=== PATIENT | female | born 1960 | race Caucasian/White ===

== ENCOUNTER 2017-11-14 08:26 | Inpatient (IN) | payer OTHER ==
[~2017-11-14] VITALS: Ht 139.7 cm; Wt 80.7 kg
[~2017-11-14 08:26] MED LIST: CIPROFLOXACIN500 M1 PO; IBUPROFEN 600600 M1 PO; NAPROSYN500 MG PO; NORCO 5-325 TA1 EACH PO; PENICILLIN VK500 MG PO; SYNTHROID; TRAMADOL 50 MG50 MG PO; ULTRAM 50MG TAB50 MG PO
[2017-11-14 08:29] VITALS: BP 118/69
[2017-11-14] MEDS ORDERED: SYNTHROID75 MCG PO (08:35)
[2017-11-14 09:01] LABS: ABSOLUTE BASOPHILS 0.1 thou/uL (0.0-0.2); ABSOLUTE EOSINOPHILS 0.1 thou/uL (0.0-0.7); ABSOLUTE LYMPHOCYTES 1.8 thou/uL (0.8-5.3); ABSOLUTE MONOCYTES 0.6 thou/uL (0.0-1.2); ABSOLUTE NEUTROPHILS 5.9 thou/uL (1.6-8.1); ANION GAP 11 mmol/L (7-16); BASOPHILS 0.9 %; BUN 26 mg/dL (7-18); CALCIUM 9.9 mg/dL (8.5-10.1); CHLORIDE 105 mmol/L (98-107); CO2 24 mmol/L (21-32); CREATININE 0.8 mg/dL (0.6-1.3); EOSINOPHILS 0.9 %; GLUCOSE 102 mg/dL (70-99); HEMATOCRIT 43.3 % (37.0-47.0); HEMOGLOBIN 14.6 gm/dL (12.0-15.0); LYMPHOCYTES 21.7 %; MCH 33.7 pg (26.0-34.0); MCHC 33.8 g/dL (28.0-37.0); MCV 99.8 fL (80.0-100.0); NUCLEATED RBCS 0 /100WBC; PLATELET COUNT* 214 thou/uL (150-400); POLYS 69.5 %; POTASSIUM 4.2 mmol/L (3.5-5.1); RBC 4.34 mil/uL (4.20-5.00); RDW-CV 12.3 % (10.5-14.5); SODIUM 140 mmol/L (136-145); WBC 8.4 thou/uL (4.0-11.0)
[2017-11-14 09:02] LABS: PROTIME 9.5 Seconds (9.20-11.50)
[2017-11-14 09:13] LABS: ALKALINE PHOSPHATASE 95 U/L (46-116); LIPASE 191 U/L (73-393); NT-PRO BRAIN NAT PEPTIDE 47 pg/mL (<300); SGOT 49 U/L (15-37); SGPT 60 U/L (30-65); TOTAL BILIRUBIN 0.1 mg/dL (<0.1-1.0); TOTAL PROTEIN 8.2 g/dL (6.4-8.2); TROPONIN-I LEVEL <0.06 ng/mL (<0.06)
[2017-11-14 12:25] VITALS: BP 113/66
[2017-11-14 13:20] VITALS: BP 120/46
--- NOTE | 2017-11-14 15:53 | EKG ---
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 Member: Murali TREVINO : 1960 Requested By: Bharat Hernandez Order Number: [id number] MD: Rom Meier Measurements Intervals [place] Rate: 80 P: 62 MS: 141 QRS: -44 QRSD: 85 T: 49 QT: 442 QTc: 510 Interpretive Statements Sinus rhythm left axis Abnormal R-wave progression, early transition consider Inferior infarct, old Compared to ECG 03/22/2011 19:07:12 no change Electronically Signed On 11-14-2017 15:53:04 CDT by Rom Meier [email or web address] <ELECTRONICALLY SIGNED> By: Rom Meier MD, [facility] 11/14/17 1553 0832 0832 Rom Meier MD, [facility] /EPI
[2017-11-14 16:00] VITALS: BP 91/45
[2017-11-14 17:30] VITALS: BP 106/50
[2017-11-14 20:00] VITALS: BP 105/58
[2017-11-15] VITALS: BP 97/48
[2017-11-15 04:00] VITALS: BP 90/48
[2017-11-15 08:00] VITALS: BP 116/37
[2017-11-15 11:00] VITALS: BP 109/67
[2017-11-15 15:00] VITALS: BP 107/71
--- NOTE | 2017-11-15 15:58 | 2DMMODE ---
[place] [address] 2 D/M-MODE ECHOCARDIOGRAM Name: ZACKARY LACY Room: [address] IN .R.#: [id number] Admission: 11/14/17 Attend Phys: Ade Avery Discharge: Date of : 62 Date of Service: 11/15/17 1558 Report #: [id number] THIS REPORT FOR: //name// APPROVED REPORT Study performed: 11/15/2017 13:46:13 EXAM: Comprehensive 2D, Doppler, and color-flow Echocardiogram Patient Location: Bedside BSA: 1.67 HR: 69 bpm BP: 109/67 mmHg Other Information Study Quality: Technically Difficult Technically limited study due to uncooperative patient. Indications Pulmonary Embolism Chest Pain 2D Dimensions LVEF(%): 72.38 (>50%) IVSd: 10.29 (7-11mm) LVOT Diam: 17.86 (18-24mm) LVDd: 43.27 mm PWd: 9.62 (7-11mm) Ascending Ao: 31.83 (22-36mm) LVDs: 25.43 (25-40mm) Aortic Root: 27.90 mm Christianson's LVEF: 72.38 % Mitral Valve E/A Ratio: 0.78 MV Decel. Time: 263.14 ms MV E Max David.: 0.65 m/s MV PHT: 76.31 ms MVA (PHT): 2.88 cm2 TDI E/Lateral E': 5.42 E/Medial E': 7.22 Medial E' David.: 0.09 m/s Lateral E' David.: 0.12 m/[place] [address] 2 D/M-MODE ECHOCARDIOGRAM Name: ZACKARY LACY Room: [address] IN [facility].#: [id number] Admission: 11/14/17 Attend Phys: Ade Avery Discharge: Date of : 62 Date of Service: 11/15/17 1558 Report #: [id number] PV Peak David.: 0.97 m/s PV Peak Gr.: 3.76 mmHg Tricuspid Valve RAP Estimate: 5.00 mmHg TR Peak Gr.: 21.34 mmHg RVSP: 26.34 mmHg PA Pressure: 26.34 mmHg Left Ventricle The left ventricle is normal size. There is normal LV segmental wall motion. There is normal left ventricular wall thickness. Left ventricular systolic function is normal. LVEF is 60-65%. Grade I - abnormal relaxation pattern. Right Ventricle The right ventricle is normal size. The right ventricular systolic function is normal. Atria The left atrium size is normal. The right atrium size is normal. Aortic Valve Aortic valve is not well visualized. Mitral Valve The mitral valve is normal in structure. Trace to mild mitral regurgitation. No evidence of mitral valve stenosis. Tricuspid Valve The tricuspid valve is normal in structure. Trace tricuspid regurgitation. The RVSP is 26 mmHg. Pulmonic Valve The pulmonary valve is normal in structure. There is no pulmonic valvular regurgitation. Great Vessels The aortic root is normal in size. IVC is not visualized. Pericardium There is no pericardial effusion. <Conclusion> The left ventricle is normal size. There is normal left [place] [address] 2 D/M-MODE ECHOCARDIOGRAM Name: ZACKARY LACY Room: [address] IN .R.#: [id number] Admission: 11/14/17 Attend Phys: Ade Avery Discharge: Date of : 62 Date of Service: 11/15/171557 Report #: [id number] Left ventricular systolic function is normal. LVEF is 60-65%. Grade I - abnormal relaxation pattern. Trace to mild mitral regurgitation. Trace tricuspid regurgitation. The RVSP is 26 mmHg. <ELECTRONICALLY SIGNED> By: Wyatt Guillaume MD, [facility] 11/15/17 1558 57 1558 Wyatt Guillaume MD, FACC /INF
[2017-11-15 20:00] VITALS: BP 97/48
[2017-11-16] VITALS: BP 100/40
[2017-11-16 04:00] VITALS: BP 104/39
[2017-11-16 04:39] LABS: INR 1.5; PROTIME 14.1 Seconds (9.20-11.50)
[2017-11-16 11:49] VITALS: BP 102/57
[2017-11-16 16:13] VITALS: BP 98/63
--- NOTE | 2017-11-16 16:19 | EKG ---
[place] [address] ELECTROCARDIOGRAM REPORT Name: ZACKARY LACY Room: [address] ADM IN M.R.#: [id number] Admission: 11/14/17 Attend Phys: Shante Mlaone Discharge: Date of : 62 Report #: [id number] THIS REPORT FOR: //name// [facility] Test Date: 2017-11-16 Test Time: 13:13:34 Pat Name: ZACKARY LACY Department: Room: [address] Gender: F A P Mechanic: : 1960 Requested By: Esteban Nguyen Order Number: [id number] MD: Rom Meier Measurements Intervals [place] Rate: 69 P: 41 ID: [id number] QRS: -45 QRSD: 83 T: 11 QT: 477 QTc: 511 Interpretive Statements Sinus rhythm Left ventricular hypertrophy left anterior fasicular block Prolonged QT interval Compared to ECG 11/14/2017 08:32:06 no change Electronically Signed On 11-16-2017 16:18:45 CDT by Rom Meier [email or web address] <ELECTRONICALLY SIGNED> By: Rom Meier MD, [facility] 11/16/17 1618 1313 1313 Rom Meier MD, [facility] /EPI
[2017-11-16 20:00] VITALS: BP 114/47
[2017-11-17 00:36] VITALS: BP 98/49
[2017-11-17 04:00] VITALS: BP 97/59
[2017-11-17 05:11] LABS: HEMOGLOBIN 12.9 gm/dL (12.0-15.0); MCHC 33.2 g/dL (28.0-37.0); MCV 99.3 fL (80.0-100.0); MPV 9.8 fl. (7.2-11.1); RBC 3.93 mil/uL (4.20-5.00); RDW-CV 12.3 % (10.5-14.5); WBC 3.5 thou/uL (4.0-11.0)
[2017-11-17 05:14] LABS: PROTIME 25.8 Seconds (9.20-11.50)
[2017-11-17 05:34] LABS: INR 2.7
[2017-11-17 05:51] LABS: CALCIUM 9.3 mg/dL (8.5-10.1); CREATININE 0.7 mg/dL (0.6-1.3); MAGNESIUM 2.1 mg/dL (1.8-2.4); POTASSIUM 4.3 mmol/L (3.5-5.1)
--- NOTE | 2017-11-17 07:16 | CON ---
[address] [address] CONSULTATION Name: ZACKARY LACY Room: [address] IN M.R.#: [id number] Admission: 11/14/17 Attend Phys: Shante Malone Discharge: Date of : 62 Report #: [id number] THIS REPORT FOR: //name// CC: BARBARA physician/PCP Ade Avery DATE OF SERVICE: 11/16/2017 REQUESTING PHYSICIAN: Dr. Esteban Nguyen. REASON FOR CONSULTATION: Chest pain, PE. DISCUSSION: The patient is a 56-year-old woman who presented to the Emergency Department several days ago with complaints of increasing chest pain and shortness of breath. She notes she has had anterior chest pain "for a long time." She has been on various medications in the past including nonsteroidals and anti-inflammatories without any relief. The chest pain is worse when she presses on it or coughs. Recently, she developed some discomfort in her mid upper back area as well. This was then making it harder to breathe. She does smoke cigarettes, but was less than a pack of cigarettes per day. Because of the shortness of breath, was seen in the Emergency Department here 2 days ago. A chest film was unremarkable. She had a CT scan done to rule out dissection and that PE were found on the right side. She was started on Lovenox. Decision was also made to use warfarin and that has been started with Lovenox to continue to bridge. She has continued to have complaints of chest pain. We are asked to see her today. She is on room air. Pain is much worse when she does cough or moves around. Again, she notes she has had some of this for "a long time." She notes the pain medication she has been receiving here in the hospital has not helped. She has no prior history of thromboembolic disease. No family history that she is aware of. She has not been immobile. No other identifiable risk factors. She has not worked for the last couple of years. 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 PAST MEDICAL HISTORY: Remarkable for hypothyroidism. She notes she has been taking her medications. She has also had a prior hysterectomy. She gets her care through [facility]. SOCIAL HISTORY: She is a smoker, less than a pack of cigarettes per day. FAMILY HISTORY: Negative for thromboembolic disease. Also, positive for COPD. No cancers. REVIEW OF SYSTEMS: A 12-point ROS was done. Note positives [place] [address] CONSULTATION Name: ZACKARY LACY Room: [address] IN [facility]#: [id number] Admission: 11/14/17 Attend Phys: Shante Malone Discharge: Date of : 62 Report #: [id number] note the nebulizer treatments given to her here in the hospital has helped her breathe better, but they did increase her cough, which made the pain worse. So, she has stopped those. Denies any difficulty swallowing. Not any nausea or vomiting. Overall, the shortness of breath is somewhat better, though she continued to have severe pain. Frustrated that none of the narcotics given her here in the hospital have helped. No syncopal episodes. No palpitations. No problems with swelling in the lower extremities. PHYSICAL EXAMINATION: GENERAL APPEARANCE: This is a woman who looks stated age, if not older. Lying in bed, resting comfortably. No respiratory distress. VITAL SIGNS: She is keeping her hands over her anterior chest, noting it is uncomfortable. HEENT: Head is normocephalic. Sclerae nonicteric. Dentition is fair. NECK: Negative for definite adenopathy, no JVD is noted. HEART: Regular rate. No S3 is heard. LUNGS: Sounds are clear. No wheezing or crackles are heard. Excursion is equal. No crepitus is palpated over her chest wall. She is quite uncomfortable with palpation over the anterior costochondral areas. Also, complains of discomfort with palpation just to the lateral aspect of her thoracic spine throughout the entire chest. No CVA tenderness. ABDOMEN: Soft, without appreciable hepatosplenomegaly. EXTREMITIES: She has no clubbing. Lower extremities are negative for any significant edema. No calf tenderness, no cords. LABORATORY AND X-RAY FINDINGS: CT scan was reviewed. She had a dissection study done and no dissection was noted. She does have two small filling defects in the right lower lobe. No clots noted in the larger pulmonary arteries. No masses seen. LABORATORY DATA: BUN is 26, creatinine 0.8, potassium is 4.2. TSH was 15.5. INR today is 1.5. D-dimer was only 0.41. Note, her protein C, protein S activity are normal. Additional hypercoagulable workup was also unremarkable. White blood cell count 8400, hemoglobin 14.6, hematocrit of 43.3, platelets are normal. IMPRESSION: 1. Non-massive pulmonary embolism. No clots found in her legs. Does not appear to have any identifiable risk factors or ongoing risks. Has been started on Lovenox and bridging towards the use of warfarin. 2. Chest wall pain. She notes much of this has actually been longstanding. Appears to have a component of costochondritis. Now with the development of pain in her back, it is possible she may have fibromyalgia. 3. Tobacco abuse. 4. Hypothyroidism. Reportedly, has been compliant with her regimen, though [place] [address] CONSULTATION Name: ZACKARY LACY Room: [address] IN M.R.#: [id number] Admission: 11/14/17 Attend Phys: Shante Malone Discharge: Date of : 62 Report #: [id number] RECOMMENDATIONS: 1. Several doses of IV Solu-Medrol may help with some of her chest wall pain. 2. Will need 6 months' worth of therapy with anticoagulation. 3. Work at controlling pain. Nonsteroidals or rather nonnarcotic medications may be helpful. May need additional evaluation such as rheumatoid factor, etc. in the future. <ELECTRONICALLY SIGNED> By: Cheri Stephens MD 11/17/17 0716 1322 0043Cheri Stephens MD /nt
[2017-11-17 08:45] VITALS: BP 126/60
[2017-11-17 12:35] VITALS: BP 97/41
[2017-11-17 16:26] VITALS: BP 94/41
[2017-11-17 20:00] VITALS: BP 105/53
[2017-11-18] VITALS: BP 79/55
[2017-11-18 04:00] VITALS: BP 83/38
[2017-11-18 05:09] LABS: INR 2.6; PROTIME 25.4 Seconds (9.20-11.50)
[2017-11-18 05:12] LABS: CALCIUM 8.9 mg/dL (8.5-10.1); CREATININE 0.7 mg/dL (0.6-1.3); POTASSIUM 3.6 mmol/L (3.5-5.1)
[2017-11-18 08:00] VITALS: BP 124/67
[2017-11-18] MEDS ORDERED: SYNTHROID150 MCG PO (10:47)
[2017-11-18] MEDS ORDERED: COUMADIN 3 MG TA3 M1 PO (10:48)
[2017-11-18] MEDS ORDERED: OXYCODONE HCL15 MG PO (10:50)
[2017-11-18] MEDS ORDERED: XANAX 0.5 MG0.5 MG PO (10:52)
[2017-11-18] MEDS ORDERED: HYDROCODON-ACE1 EAC7 PO (10:57)
[2017-11-18] MEDS ORDERED: AUGMENTIN 875-1 EACH PO (11:02)
[2017-11-18 11:27] VITALS: BP 124/67
--- NOTE | 2017-11-21 14:13 | CON ---
[address] [address] CONSULTATION Name: ZACKARY LACY Room: [address] IN M.R.#: [id number] Admission: 11/14/17 Attend Phys: Shante Malone Discharge: 11/18/17 Date of : 62 Report #: [id number] THIS REPORT FOR: //name// CC: BARBARA physician/PCP Ade Avery DATE OF SERVICE: 11/16/2017 TYPE OF REPORT: Cardiology consultation. HISTORY OF PRESENT ILLNESS: The patient is a 56-year-old single white female who I was asked to see in the hospital today after she complained of chest pain. The patient states that she has had chest pain for years. She actually notes that the skin on the front of her chest is tender to touch. She was actually admitted overnight in [place], [place] with chest pain and told that she had fibromyalgia. She has never been to [place] before. However, she was brought to the Emergency Room 2 nights ago when she felt a pain in her chest that radiated into her back. It is worse if she took a deep breath or coughed. There is no associated nausea or diaphoresis. She had had no bleeding or fever. She does have a chronic cough. She denied any swelling of her leg or leg pain. She had a CT scan that showed a pulmonary embolus. Cardiology consultation was requested. She notes occasional flutter in her chest and lightheadedness but she has had no syncope. PAST MEDICAL HISTORY: Significant for cholecystectomy, appendectomy, tonsillectomy, hysterectomy, clavicular fracture, removal of a lipoma, hypothyroidism. She has no history of hypertension, diabetes or hyperlipidemia. MEDICATIONS: Her only medication includes Synthroid that she gets some [place]. ALLERGIES: She has no known drug allergies. FAMILY HISTORY: Negative for heart disease. SOCIAL HISTORY: She is single, lives in [place], [place]. She is not working at this time. She does not have insurance. She smokes half pack of cigarettes a day. Rarely drinks alcohol. Denies illicit drug use. REVIEW OF SYSTEMS: She has no history of stroke. She does have chronic cough. No history of liver disease, kidney disease, cancer, psychiatric illness or chronic skin condition. PHYSICAL EXAMINATION: GENERAL: Revealed a middle-aged female lying in bed. She appeared in no acute distress. VITAL SIGNS: She had a blood pressure of 100/60, pulse 60 and [place] [address] CONSULTATION Name: ZACKARY LACY Room: [address]#: [id number] Admission: 11/14/17 Attend Phys: Shante Malone Discharge: 11/18/17 Date of : 62 Report #: [id number] HEENT: She was anicteric. Conjunctivae pink. Mucous membranes moist. NECK: Veins nondistended. No carotid bruits. Neck supple. CHEST: Clear to auscultation. CARDIOVASCULAR: Regular rate and rhythm. No murmur. ABDOMEN: Soft and nontender. EXTREMITIES: Had no edema. Dorsalis pedis pulse 2+ bilaterally. SKIN: Warm and dry. NEUROLOGICAL: Nonfocal. LYMPHATIC: No adenopathy. MUSCULOSKELETAL: No joint effusion. PSYCHIATRIC: Mood is appropriate. RADIOLOGICAL DATA: Her ECG on admission showed a sinus rhythm on the monitor; however, there does not appear to be a 12-lead ECG in her chart. Her workup so far, she actually had an echocardiogram performed yesterday that showed normal ventricular function. No pericardial effusion. She had x-rays that included a portable chest x-ray that showed tortuous aorta and clear lung win. CT scan of the chest using a PE protocol that showed right lower lobe mild pulmonary embolus. No aortic dissection. Venous duplex scan of her legs showed no DVT. LABORATORY DATA: She actually had lab work that included sodium 140 and creatinine 0.8. Liver function studies were normal. Troponin 0.06. TSH is 15, T4 0.2, which is low and free T3 is 0.4, which is low. White blood cell count is 8.4 and hemoglobin 14.6. IMPRESSION AND RECOMMENDATIONS: 1. Pulmonary embolus. The patient is being anticoagulated. 2. Chest pain. Suspect noncardiac. Recommend no further cardiac evaluation. 3. Hypothyroidism. 4. Tobacco abuse. 5. Chronic bronchitis. <ELECTRONICALLY SIGNED> By: Rom Meier MD, [facility] 11/21/17 1413 1405 2230Dadiego Meier MD, FAC /nt
== END 2017-11-18 11:50 | disposition home or self-care (01) | DRG 176 ==
LOC: M.ERS 08:26 → M.2W 11:13 → M.TBA-ER 11:13 → M.2W 12:43
PROVIDERS: Emergency Medicine; Family Medicine; ADMIT Internal Medicine
DX: I26.99 Other pulmonary embolism without acute cor pulmonale (principal); R07.89 Other chest pain; F17.210 Nicotine dependence, cigarettes, uncomplicated; J42 Unspecified chronic bronchitis; E03.9 Hypothyroidism, unspecified; F41.9 Anxiety disorder, unspecified; Z90.710 Acquired absence of both cervix and uterus; Z90.49 Acquired absence of other specified parts of digestive tract; Z98.890 Other specified postprocedural states; Z82.5 Family history of asthma and other chronic lower respiratory diseases; Z79.01 Long term (current) use of anticoagulants; Z79.899 Other long term (current) drug therapy

== ENCOUNTER 2017-12-12 14:07 | Emergency (ER) | payer OTHER ==
[~2017-12-12] VITALS: Ht 149.9 cm; Wt 75.9 kg
[~2017-12-12 14:07] MED LIST changes: +AUGMENTIN 875-1 EACH PO; +COUMADIN 3 MG TA3 M1 PO; +HYDROCODON-ACE1 EAC7 PO; +OXYCODONE HCL15 MG PO; +SYNTHROID150 MCG PO; +SYNTHROID75 MCG PO; +XANAX 0.5 MG0.5 MG PO
[2017-12-12] MEDS ORDERED: CYMBALTA30 MG PO (14:18)
[2017-12-12 14:37] LABS: ABSOLUTE BASOPHILS 0.1 thou/uL (0.0-0.2); ABSOLUTE EOSINOPHILS 0.1 thou/uL (0.0-0.7); ABSOLUTE LYMPHOCYTES 1.6 thou/uL (0.8-5.3); ABSOLUTE MONOCYTES 0.4 thou/uL (0.0-1.2); ABSOLUTE NEUTROPHILS 3.7 thou/uL (1.6-8.1); BASOPHILS 0.9 %; EOSINOPHILS 1.1 %; HEMATOCRIT 39.3 % (37.0-47.0); HEMOGLOBIN 13.4 gm/dL (12.0-15.0); LYMPHOCYTES 27.5 %; MCH 32.9 pg (26.0-34.0); MCV 96.9 fL (80.0-100.0); MONOCYTES 7.6 %; MPV 9.1 fl. (7.2-11.1); NUCLEATED RBCS 0 /100WBC; PLATELET COUNT* 227 thou/uL (150-400); POLYS 62.9 %; RBC 4.05 mil/uL (4.20-5.00); RDW-CV 12.5 % (10.5-14.5); WBC 5.8 thou/uL (4.0-11.0)
[2017-12-12 14:54] LABS: ANION GAP 8 mmol/L (7-16); BUN 14 mg/dL (7-18); CALCIUM 9.7 mg/dL (8.5-10.1); CHLORIDE 104 mmol/L (98-107); CO2 29 mmol/L (21-32); CREATININE 0.7 mg/dL (0.6-1.3); GLUCOSE 118 mg/dL (70-99); POTASSIUM 3.6 mmol/L (3.5-5.1); SODIUM 141 mmol/L (136-145)
[2017-12-12 15:00] LABS: APTT 25.3 Seconds (25.0-31.3)
[2017-12-12 15:15] LABS: ALBUMIN 3.7 g/dL (3.4-5.0); ALKALINE PHOSPHATASE 92 U/L (46-116); CK-MB MASS 0.8 ng/mL (<0.5-3.6); LIPASE 201 U/L (73-393); MAGNESIUM 1.9 mg/dL (1.8-2.4); NT-PRO BRAIN NAT PEPTIDE 47 pg/mL (<300); SGOT 38 U/L (15-37); SGPT 65 U/L (30-65); TOTAL BILIRUBIN 0.2 mg/dL (<0.1-1.0); TOTAL PROTEIN 7.5 g/dL (6.4-8.2); TROPONIN-I LEVEL <0.06 ng/mL (<0.06)
[2017-12-12] MEDS ORDERED: ULTRAM 50MG TAB50 MG PO (16:04)
[2017-12-12] MEDS ORDERED: XANAX 1 MG TABLE1 MG PO (16:04)
[2017-12-12 16:13] VITALS: BP 98/61
--- NOTE | 2017-12-13 13:01 | EKG ---
[place] [address] ELECTROCARDIOGRAM REPORT Name: ZACKARY LACY Room: 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 : 1960 Requested By: Stephen Barrett Order Number: [id number] MD: Garrick Du Measurements Intervals [place] Rate: 81 P: 58 [place]: 139 QRS: -42 QRSD: 96 T: 39 QT: 404 QTc: 469 Interpretive Statements Sinus rhythm Left anterior fascicular block Left ventricular hypertrophy Borderline T abnormalities, anterior leads Compared to ECG 11/16/2017 13:13:34 Left anterior fascicular block now present T-wave abnormality now present Prolonged QT interval no longer present Electronically Signed On 12-13-2017 13:00:46 CDT by Garrick Du [email or web address] <ELECTRONICALLY SIGNED> By: Garrick Du MD, FAC 12/13/17 1300 1414 1414 Garrick Du MD, [facility] /EPI
== END 2017-12-12 16:13 | disposition home or self-care (01) ==
LOC: M.ERS 14:07
PROVIDERS: Family Medicine
DX: R07.9 Chest pain, unspecified (principal); E03.9 Hypothyroidism, unspecified; F17.210 Nicotine dependence, cigarettes, uncomplicated; Z90.49 Acquired absence of other specified parts of digestive tract; Z90.89 Acquired absence of other organs; Z90.710 Acquired absence of both cervix and uterus

== ENCOUNTER 2018-01-03 09:01 | Emergency (ER) | payer OTHER ==
[~2018-01-03] VITALS: Ht 139.7 cm; Wt 74.8 kg
[~2018-01-03 09:01] MED LIST changes: +CYMBALTA30 MG PO; +XANAX 1 MG TABLE1 MG PO
[2018-01-03 09:06] VITALS: BP 106/34
[2018-01-03] MEDS ORDERED: NORCO 5-325 TA1 EACH PO (09:31)
[2018-01-03] MEDS ORDERED: PENICILLIN VK500 M1 PO (09:31)
== END 2018-01-03 09:40 | disposition home or self-care (01) ==
LOC: M.ERS 09:01
DX: K02.9 Dental caries, unspecified (principal); E03.9 Hypothyroidism, unspecified; Z90.49 Acquired absence of other specified parts of digestive tract; Z90.710 Acquired absence of both cervix and uterus; K75.9 Inflammatory liver disease, unspecified

== ENCOUNTER 2018-01-22 17:25 | Emergency (ER) | payer OTHER ==
[~2018-01-22] VITALS: Ht 139.7 cm; Wt 71.7 kg
[~2018-01-22 17:25] MED LIST changes: +PENICILLIN VK500 M1 PO
[2018-01-22] MEDS ORDERED: IBUPROFEN 600600 M1 PO (17:53)
[2018-01-22 17:56] VITALS: BP 144/60
== END 2018-01-22 18:04 | disposition home or self-care (01) ==
LOC: M.ERS 17:25
DX: M26.623 Arthralgia of bilateral temporomandibular joint (principal); E03.9 Hypothyroidism, unspecified; Z90.49 Acquired absence of other specified parts of digestive tract; Z90.710 Acquired absence of both cervix and uterus; F17.210 Nicotine dependence, cigarettes, uncomplicated; Z86.19 Personal history of other infectious and parasitic diseases

== ENCOUNTER 2018-03-16 11:39 | Emergency (ER) | payer OTHER ==
[~2018-03-16] VITALS: Ht 139.7 cm; Wt 77.1 kg
[2018-03-16] MEDS ORDERED: MEDROLDOSEPACK PO (12:22)
[2018-03-16] MEDS ORDERED: GABAPENTIN 100100 MG PO (12:22)
[2018-03-16 12:43] VITALS: BP 118/68
== END 2018-03-16 12:44 | disposition home or self-care (01) ==
LOC: M.ERS 11:39
DX: M72.2 Plantar fascial fibromatosis (principal); Z76.0 Encounter for issue of repeat prescription

== ENCOUNTER 2018-04-01 18:47 | Emergency (ER) | payer OTHER ==
[~2018-04-01] VITALS: Ht 139.7 cm; Wt 79.4 kg
[~2018-04-01 18:47] MED LIST changes: +GABAPENTIN 100100 MG PO; +MEDROLDOSEPACK PO
[2018-04-01] MEDS ORDERED: NAPROSYN500 MG PO (20:09)
[2018-04-01] MEDS ORDERED: NEURONTIN100 MG PO (20:09)
[2018-04-01] MEDS ORDERED: NORCO 5-325 TA1 EACH PO (20:09)
[2018-04-01] MEDS ORDERED: PREDNISONE 10 M10 MG PO (20:09)
[2018-04-01 20:39] VITALS: BP 138/79
== END 2018-04-01 20:40 | disposition home or self-care (01) ==
LOC: M.ERS 18:47
DX: M72.2 Plantar fascial fibromatosis (principal); M76.61 Achilles tendinitis, right leg; E03.9 Hypothyroidism, unspecified; Z90.49 Acquired absence of other specified parts of digestive tract; Z90.710 Acquired absence of both cervix and uterus; F17.210 Nicotine dependence, cigarettes, uncomplicated

== ENCOUNTER 2018-07-10 10:41 | Emergency (ER) | payer BC ==
[~2018-07-10] VITALS: Ht 139.7 cm; Wt 77.1 kg
[~2018-07-10 10:41] MED LIST changes: +NEURONTIN100 MG PO; +PREDNISONE 10 M10 MG PO
[2018-07-10 12:31] VITALS: BP 116/90
== END 2018-07-10 12:32 | disposition home or self-care (01) ==
LOC: M.ERS 10:41
DX: M67.431 Ganglion, right wrist (principal); E03.9 Hypothyroidism, unspecified; K75.9 Inflammatory liver disease, unspecified; Z90.49 Acquired absence of other specified parts of digestive tract; Z90.710 Acquired absence of both cervix and uterus; F17.210 Nicotine dependence, cigarettes, uncomplicated

== ENCOUNTER 2018-08-20 14:27 | Emergency (ER) | payer BC ==
[~2018-08-20] VITALS: Ht 139.7 cm; Wt 74.8 kg
[2018-08-20] MEDS ORDERED: NEURONTIN 400400 M1 PO (14:38)
[2018-08-20 15:12] LABS: ABSOLUTE BASOPHILS 0.1 thou/uL (0.0-0.2); ABSOLUTE EOSINOPHILS 0.1 thou/uL (0.0-0.7); ABSOLUTE MONOCYTES 0.4 thou/uL (0.0-1.2); ABSOLUTE NEUTROPHILS 4.7 thou/uL (1.6-8.1); EOSINOPHILS 1.1 %; HEMATOCRIT 42.4 % (37.0-47.0); HEMOGLOBIN 14.4 gm/dL (12.0-15.0); LYMPHOCYTES 27.8 %; MCH 32.4 pg (26.0-34.0); MCHC 33.9 g/dL (28.0-37.0); MCV 95.6 fL (80.0-100.0); MONOCYTES 5.6 %; MPV 9.1 fl. (7.2-11.1); NUCLEATED RBCS 0 /100WBC; PLATELET COUNT* 256 thou/uL (150-400); POLYS 64.5 %; RBC 4.43 mil/uL (4.20-5.00); RDW-CV 12.9 % (10.5-14.5); WBC 7.2 thou/uL (4.0-11.0)
[2018-08-20 15:22] LABS: INR 0.9; PROTIME 9.6 Seconds (9.20-11.50)
[2018-08-20 15:30] LABS: ALBUMIN 4.1 g/dL (3.4-5.0); ALKALINE PHOSPHATASE 122 U/L (46-116); ANION GAP 11 mmol/L (7-16); BUN 15 mg/dL (7-18); CALCIUM 9.5 mg/dL (8.5-10.1); CHLORIDE 104 mmol/L (98-107); CO2 27 mmol/L (21-32); CREATININE 0.8 mg/dL (0.6-1.3); GLUCOSE 93 mg/dL (70-99); POTASSIUM 4.1 mmol/L (3.5-5.1); SGOT 45 U/L (15-37); SGPT 58 U/L (30-65); SODIUM 142 mmol/L (136-145); TOTAL BILIRUBIN 0.2 mg/dL (<0.1-1.0); TOTAL PROTEIN 8.3 g/dL (6.4-8.2); TROPONIN-I LEVEL <0.06 ng/mL (<0.06)
[2018-08-20 16:16] LABS: INFLUENZA A ANTIGEN None Detected (None Detect); INFLUENZA B ANTIGEN None Detected (None Detect)
[2018-08-20] MEDS ORDERED: PROAIR HFA8.5 GM INH (16:55)
[2018-08-20] MEDS ORDERED: PREDNISONE 20 M20 M1 PO (16:55)
[2018-08-20] MEDS ORDERED: ZPAK PO (16:55)
[2018-08-20] MEDS ORDERED: ACETAMINOPHEN-1 EAC1 PO (16:55)
[2018-08-20 17:19] VITALS: BP 126/48
--- NOTE | 2018-08-21 16:42 | EKG ---
[place] [address] ELECTROCARDIOGRAM REPORT Name: ZACKARY LACY Room: [facility]#: [id number] Admission: 08/20/18 Attend Phys: Discharge: 08/20/18 Date of : 62 Report #: [id number] THIS REPORT FOR: //name// [facility] ED Test Date: 2018-08-20 Test Time: 15:07:30 Pat Name: ZACKARY LACY Department: Room: Gender: F [employer]: DRISS : 1960 Requested By: Dodei Valadez Order Number: [id number] MD: Garrick Du Measurements Intervals [place] Rate: 73 P: 36 [place]: 145 QRS: -45 QRSD: 89 T: 4 QT: 422 QTc: 465 Interpretive Statements Sinus rhythm Consider right atrial enlargement Left anterior fascicular block Abnormal R-wave progression, late transition Left ventricular hypertrophy Minimal ST elevation, lateral leads Compared to ECG 12/12/2017 14:14:15 ST (T wave) deviation now present T-wave abnormality no longer present Electronically Signed On 08-21-2018 16:42:35 CDT by Garrick Du [email or web address] <ELECTRONICALLY SIGNED> By: Garrick Du MD, [facility] 08/21/18 1642 1507 1507 Garrick Du MD, [facility] /EPI
== END 2018-08-20 17:20 | disposition left against medical advice (07) ==
LOC: M.ERS 14:27
PROVIDERS: Nurse Practitioner Family
DX: J20.9 Acute bronchitis, unspecified (principal); E03.9 Hypothyroidism, unspecified; M79.7 Fibromyalgia; F17.210 Nicotine dependence, cigarettes, uncomplicated; Z90.710 Acquired absence of both cervix and uterus; Z90.49 Acquired absence of other specified parts of digestive tract; Z86.19 Personal history of other infectious and parasitic diseases